=== PATIENT | male | born 1965 | race Caucasian/White ===

== ENCOUNTER 2018-01-05 11:53 | Emergency (ER) | payer BC ==
[2018-01-05 12:04] VITALS: BP 152/93
--- NOTE | 2018-01-05 12:35 | RAD ---
INDICATION: LEFT fifth toe pain and swelling following injury 3 weeks ago. COMPARISON: No relevant prior exams available on the [facility] P[facility] for comparison. TECHNIQUE: AP, lateral, and oblique views LEFT 5th toe. REPORT AND IMPRESSION: #. Oblique diaphyseal fracture of the fifth proximal phalanx mild override of the fracture fragments. Subtle osseous remodeling distal lateral margin favors early fracture healing response. #. Normal articular alignment. #. Fusiform soft tissue swelling.
--- NOTE | 2018-01-05 12:40 | UC ---
Lower Extremity/Ankle HPI - HPI Summary HPI Summary: STEPPED ON UNEVEN PAVEMENT WHILE ON VACATION IN [facility] 3 WEEKS AGO. HAD IMMEDIATE PAIN IN LEFT FIFTH TOE. PAIN AND SWELLING IN TOE ARE PERSISTENT SO PATIENT CAME IN FOR EVAL TODAY. PT ADMITS HE HAS NOT BEEN RESTING IT OR TAKING IT EASY AT ANY LEVEL. - History of Current Complaint Chief Complaint: UCLowerExtremity Stated Complaint: TOE INJURY Time Seen by Provider: 01/05/18 12:38 Hx Obtained From: Patient Onset/Duration: Sudden Onset, Lasting Weeks, Still Present Severity Initially: Moderate Severity Currently: Moderate Pain Intensity: 3 Pain Scale Used: 0-10 Numeric Aggravating Factor(s): Standing, Ambulation Alleviating Factor(s): Rest Able to Bear Weight: Yes - Allergies/Home Medications Allergies/Adverse Reactions: Allergies Allergy/AdvReac Type Severity Reaction Status Date / Time No Known Allergies Allergy Verified 01/05/18 12:04 Home Medications: Home Medications Ibuprofen 600 mg PO 01/05/18 [History] PMH/Surg Hx/FS Hx/Imm Hx Endocrine History: Diabetes - TYPE I, Hypothyroidism - Surgical History Surgical History: Yes Surgery Procedure, Year, and Place: L KNEE ACL reconstruction 1996 with 3 subsquent arthroscopies - Family History Known Family History: Positive: Hypertension - Social History Alcohol Use: Weekly Substance Use Type: None Smoking Status (MU): Never Smoked Tobacco Review of Systems Constitutional: Negative Skin: Other - LEFT 5TH TOE REDNESS Respiratory: Negative Cardiovascular: Negative Gastrointestinal: Negative Musculoskeletal: Arthralgia, Decreased ROM, Edema All Other Systems Reviewed And Are Negative: Yes Physical Exam Triage Information Reviewed: Yes Appearance: Well-Appearing, No Pain Distress, Well-Nourished Vital Signs: Initial Vital Signs Temp 98.6 F 01/05/18 11:55 Pulse 67 01/05/18 11:55 Resp 18 01/05/18 11:55 BP 152/93 01/05/18 11:55 Pulse Ox 99 01/05/18 11:55 Vital Signs Reviewed: Yes Eyes: Positive: Conjunctiva Clear ENT: Positive: Hearing grossly normal Neck: Positive: Supple Respiratory: Positive: No respiratory distress, No accessory muscle use Cardiovascular: Positive: Pulses Normal Abdomen Description: Positive: Soft Musculoskeletal: Positive: Edema @ - LEFT 5TH TOE, Other: - TTP LEFT 5TH TOE Neurological: Positive: Alert Psychological: Positive: Age Appropriate Behavior Skin: Positive: Other - LEFT 5TH TOE REDNESS Diagnostics - Radiology LEFT 5TH TOE XRAYS Xray Interpretation: Positive (See Comments) - Oblique diaphyseal fracture of the fifth proximal phalanx mild override of the fracture fragments. Subtle osseous remodeling distal lateral margin favors early fracture healing response. Radiology Interpretation Completed By: Radiologist Lower Extremity Course/Dx - Differential Dx/Diagnosis Provider Diagnoses: Oblique diaphyseal fracture of the fifth proximal phalanx with mild override of the fracture fragments Discharge - Sign-Out/Discharge Documenting (check all that apply): Patient Departure All imaging exams completed and their final reports reviewed: Yes - Discharge Plan Condition: Stable Disposition: HOME Patient Education Materials: Toe Fracture (ED) Referrals: Zen Gaona MD [Medical Doctor] - 2 Weeks Mike FORBES,Martinez Neil [Primary Care Provider] - If Needed Additional Instructions: XRAY TODAY SHOWS Oblique diaphyseal fracture of the fifth proximal phalanx with mild override of the fracture fragments. Subtle osseous remodeling distal lateral margin favors early fracture healing response. POST OP SHOE FOR COMFORT. FOLLOW-UP WITH ORTHOPEDICS WITHIN THE NEXT 1-2 WEEKS FOR RE-EVALUATION. - Billing Disposition and Condition Condition: STABLE Disposition: Home
== END 2018-01-05 13:30 | disposition home or self-care (01) ==
LOC: UCEAST 11:53
DX: S92.512A Displaced fracture of proximal phalanx of left lesser toe(s), initial encounter for closed fracture (principal); W22.09XA Striking against other stationary object, initial encounter; Y93.01 Activity, walking, marching and hiking; Y92.480 Sidewalk as the place of occurrence of the external cause
CPT/HCPCS: 99212; G0463

== ENCOUNTER 2021-06-15 07:03 | Observation (INO) ==
[~2021-06-15 07:03] MED LIST: Buffered Lidocaine 1% SYRIN 1 ml INTRADERM ONE; Famotidine IV 10 MG/ML 2 ml VIAL (20 mg) IV ONE; Lactated Ringers 1000 ml BAG 1,000 ML IV SCH
[2021-06-15] MEDS ORDERED: Famotidine IV 10 MG/ML 2 ml VIAL (20 mg) ONE (07:28)
[2021-06-15] MEDS ORDERED: ceFAZolin 2 GM in NS PREMIX 2 GM/100 ML BAG IVPB ONE (07:28)
[2021-06-15] MEDS ORDERED: Ropivacaine 5 MG/ML 20 ML VIAL 0.5% (100 MG) ONE (08:18)
[2021-06-15] MEDS ORDERED: Midazolam 5 mg/5 ml VIAL 1 mg/ml 5 ml VIAL (5 mg) ONE (08:27)
[2021-06-15] MEDS ORDERED: ROPIVACAINE 5 MG/ML 30 ML BTL (0.5%) ONE (08:27)
[2021-06-15] MEDS ORDERED: Phenylephrine IV 10 MG/ML 1 ml VIAL ONE (08:27)
[2021-06-15] MEDS ORDERED: Lidocaine 2% PF 5 ML VIAL ONE ×2 (08:27)
[2021-06-15] MEDS ORDERED: fentaNYL 100 mcg/2 ml 50 MCG/ML VIAL ONE ×2 (08:27→11:56)
[2021-06-15] MEDS ORDERED: Ondansetron 4 mg VIAL 2 MG/ML 2 ml VIAL ONE (09:51)
[2021-06-15] MEDS ORDERED: Dexamethasone IV 4 MG/ML VIAL 1 ml VIAL ONE (09:51)
[2021-06-15] MEDS ORDERED: Morphine 4 MG/ML VIAL (1 ml) IV PRN (10:03)
[2021-06-15] MEDS ORDERED: Ondansetron 4 mg VIAL 2 MG/ML 2 ml VIAL IV PRN ×2 (10:03→10:37)
[2021-06-15] MEDS ORDERED: diPHENhydraMINE IV 50 MG/ML 1 ml VIAL (BENADRYL) IV PRN (10:03)
[2021-06-15] MEDS ORDERED: diPHENhydraMINE 25 mg TAB PO PRN (10:03)
[2021-06-15] MEDS ORDERED: Ondansetron ODT 4 mg TAB 4 MG TAB PO PRN (10:03)
[2021-06-15] MEDS ORDERED: Magnesium Hydroxide LIQ 30 ML UDC PO PRN (10:03)
[2021-06-15] MEDS ORDERED: Lactulose 30 ml UDC PO PRN (10:03)
[2021-06-15] MEDS ORDERED: Dextrose 50% Syringe 50 ml 25 GM/50 ML SYRINGE IV PUSH PRN ×2 (10:12→14:44)
[2021-06-15] MEDS ORDERED: Propofol 10 MG/ML 20 ML BTL ONE ×2 (10:18→11:32)
[2021-06-15] MEDS ORDERED: Naloxone 0.4 mg VIAL 0.4 mg/ml 1 ml VIAL IV PRN (10:37)
[2021-06-15] MEDS ORDERED: fentaNYL 100 mcg/2 ml 50 MCG/ML VIAL IV PRN (10:37)
[2021-06-15] MEDS ORDERED: Lactated Ringers 1000 ml BAG 1,000 ML IV SCH (11:00)
[2021-06-15] MEDS ORDERED: HYDROmorphone 1 MG/1 ML SYRINGE ONE (12:50)
[2021-06-15] MEDS: HYDROmorphone 1 MG/1 ML SYRINGE IV PRN ×2 (12:53→13:07)
[2021-06-15] MEDS: ceFAZolin 1 GM in Dextrose 1 GM/50 ML BAG IVPB SCH ×2 (16:19→23:43)
[2021-06-15] MEDS ORDERED: Insulin GLARGINE 100 un/ml 10 ml VIAL SUBCUT SCH (21:00)
[2021-06-15] MEDS: Magnesium Hydroxide LIQ 30 ML UDC PO SCH ×2 (21:28→21:30)
[2021-06-16 06:24] LABS: Hematocrit 28 % (42-52); Hemoglobin 9.4 g/dL (14.0-18.0); Platelet Count 293 10^3/uL (150-450)
[2021-06-16 06:46] LABS: Calcium 8.6 mg/dL (8.6-10.3); Potassium 4.5 mmol/L (3.5-5.0); eGFR CKD-EPI 100.6 (>60)
[2021-06-16] MEDS ORDERED: Insulin GLARGINE 100 un/ml 10 ml VIAL SUBCUT ONE ×2 (07:44→09:44)
[2021-06-16] MEDS: Magnesium Hydroxide LIQ 30 ML UDC PO SCH (08:07)
[2021-06-16] MEDS: ceFAZolin 1 GM in Dextrose 1 GM/50 ML BAG IVPB SCH (08:11)
[2021-06-16] MEDS ORDERED: Flu vaccine *QUAD* 2021-22* 0.5 ML SYRINGE IM ONE (09:00)
[2021-06-16] MEDS ORDERED: Vitamin THERAPEUTIC TAB PO SCH (09:00)
[2021-06-16 11:31] VITALS: BP 178/99
== END 2021-06-16 13:25 | disposition home or self-care (01) ==
LOC: OR 07:03 → SSU 07:03 → EDSTATUS 08:45
PROVIDERS: ADMIT Orthopaedic Surgery Adult Reconstructive Orthopaedic Surgery; ATTEND Orthopaedic Surgery Adult Reconstructive Orthopaedic Surgery